=== PATIENT | female | born 1950 | race Caucasian/White ===

== ENCOUNTER 2024-10-19 16:23 | Emergency (ER) | payer MEDICARE, OTHER ==
[~2024-10-19] VITALS: Ht 149.9 cm; Wt 96.7 kg
[~2024-10-19 16:23] MED LIST: ASPIR 8181 MG PO; ATORVASTATIN CA80 MG PO; GLIMEPIRIDE2 MG PO; KRILL OIL PO; LOSARTAN POTASS50 MG PO; METFORMIN HCL500 MG PO; SERTRALINE HCL50 MG PO; TRIAMTERENE-HCTZ1 EA PO; VITAMIN D35000 UNIT PO; WOMEN'S 50+ DA1 EACH PO
[2024-10-19 16:30] VITALS: PULSE 85; RESP 20; TEMP 98
[2024-10-19] MEDS ORDERED: OZEMPIC0.25 MG/02 (17:07)
[2024-10-19] MEDS ORDERED: ENTRESTO 24 MG1 EACH (17:07)
[2024-10-19] MEDS ORDERED: AMLODIPINE BESYL5 MG PO (17:07)
[2024-10-19] MEDS ORDERED: HYDROCHLOROTHIA25 MG PO (17:07)
[2024-10-19] MEDS ORDERED: TRESIBA100 UNIT/1 (17:07)
[2024-10-19] MEDS ORDERED: METOPROLOL SUCC25 MG PO (17:07)
[2024-10-19] MEDS ORDERED: AZITHROMYCIN250 MG PO (17:13)
[2024-10-19 17:23] VITALS: BP 126/68; PULSE 78; RESP 20; TEMP 97.3; O2SAT 95
== END 2024-10-19 17:22 | disposition home or self-care (01) ==
LOC: FSED 16:28
DX: R05.9 Cough, unspecified (principal); J20.9 Acute bronchitis, unspecified; I10 Essential (primary) hypertension; E11.9 Type 2 diabetes mellitus without complications; E78.5 Hyperlipidemia, unspecified; Z11.52 Encounter for screening for COVID-19
CPT/HCPCS: 0223U; 83518; 87400; 99284